=== PATIENT | female | born 1945 | race Caucasian/White ===

== ENCOUNTER 2018-04-04 13:40 | Emergency (ER) | payer MEDICARE, OTHER ==
[~2018-04-04] VITALS: Ht 160 cm; Wt 70.5 kg
[~2018-04-04 13:40] MED LIST: NORCO10T PO; OSC500T PO
[2018-04-04 13:56] VITALS: BP 187/91
[2018-04-04] MEDS ORDERED: ketorolac tromethamine 15mg/ml inj. IM ONE (14:00)
[2018-04-04] MEDS ORDERED: HYDROcodone/acetaminophen 10/325mg tab PO ONE (14:00)
[2018-04-04] MEDS ORDERED: TRAM50TA2 PO (15:43)
[2018-04-04] MEDS ORDERED: DICL100G15 TOP (15:43)
== END 2018-04-04 16:00 | disposition home or self-care (01) ==
LOC: ER 13:41
DX: M25.462 Effusion, left knee (principal); M71.22 Synovial cyst of popliteal space [Baker], left knee; I10 Essential (primary) hypertension; Z98.890 Other specified postprocedural states; Z79.899 Other long term (current) drug therapy
CPT/HCPCS: 73560; 93971; 96372; 99284; J1885

== ENCOUNTER 2018-07-17 08:39 | Outpatient (CLI) | payer MEDICARE, OTHER ==
[~2018-07-17 08:39] MED LIST changes: +DICL100G15 TOP
[2018-07-17 10:15] LABS: BASOPHILS # (AUTO) 0.1 X10'3 (0-0.2); BASOPHILS % (AUTO) 0.6 % (0-1); EOSINOPHILS # (AUTO) 0.2 X10'3 (0-0.9); EOSINOPHILS % (AUTO) 1.7 % (0-6); HEMATOCRIT 39.7 % (35.0-45.0); HEMOGLOBIN 13.6 g/dl (12.0-16.0); LYMPHOCYTES # (AUTO) 2.9 X10'3 (1.1-4.8); LYMPHOCYTES % (AUTO) 26.2 % (21-51); MEAN CORPUSCULAR HEMOGLOBIN 32.4 PG (27.0-31.0); MEAN CORPUSCULAR HGB CONC 34.3 % (33.0-36.5); MEAN CORPUSCULAR VOLUME 94.4 FL (78-98); MEAN PLATELET VOLUME 9.2 FL (7.4-10.4); MONOCYTES # (AUTO) 0.6 X10'3 (0-0.9); MONOCYTES % (AUTO) 5.5 % (2-12); NEUTROPHILS # (AUTO) 7.2 X10'3 (1.8-7.7); PLATELET COUNT 428 X10'3 (140-440); RED BLOOD COUNT 4.21 X10'6 (4.20-5.60); RED CELL DISTRIBUTION WIDTH 12.3 % (11.5-14.5)
[2018-07-17 10:15] LABS: CLARITY,URINE CLEAR (Clear); COLOR,URINE STRAW (Yellow); GLUCOSE, URINE NEGATIVE (Neg); KETONES,URINE NEGATIVE (Neg); LEUKOCYTE ESTERASE ,URINE NEGATIVE (Neg); NITRITES, URINE NEGATIVE (Neg); OCCULT BLOOD,URINE TRACE-INTACT (Neg); PROTEIN,URINE NEGATIVE (Neg); UROBILINOGEN,URINE 0.2 E.U/dL (0.2-1.0)
[2018-07-17 10:16] LABS: UA COLLECTION TYPE CLN CATCH MIDSTREAM
[2018-07-17 10:24] LABS: SQUAMOUS EPITHELIAL CELL,UR FEW /LPF (FEW)
[2018-07-17 10:25] LABS: WBC,URINE 0-4 /HPF (0-4)
[2018-07-17 10:26] LABS: BACTERIA,URINE NONE SEEN /HPF (Neg); RBC,URINE 0-2 /HPF (0-2)
[2018-07-17 10:35] LABS: ALANINE AMINOTRANSFERASE 72 U/L (12-78); ALBUMIN 3.6 G/DL (3.4-5.0); ALBUMIN/GLOBULIN RATIO 0.8 (1.1-1.5); ALKALINE PHOSPHATASE 154 IU/L (46-116); ANION GAP 10 (8-16); ASPARTATE AMINO TRANSFERASE 30 U/L (10-37); BILIRUBIN,TOTAL 0.4 MG/DL (0.1-1.0); BLOOD UREA NITROGEN 11 MG/DL (7-18); CALCIUM 8.6 MG/DL (8.5-10.1); CHLORIDE 103 MMOL/L (99-107); CREATININE 0.58 MG/DL (0.40-0.90); GLUCOSE 95 MG/DL (70-104); INR 0.9 INR; POTASSIUM 3.9 MMOL/L (3.5-5.1); PROTHROMBIN TIME 9.5 SECONDS (9.0-12.0); SODIUM 141 MMOL/L (135-145); TOTAL CARBON DIOXIDE 28.1 MMOL/L (24-32); eGFR > 90 ML/MIN
== END 2018-07-17 23:59 | disposition home or self-care (01) ==
LOC: LAB 08:39
PROVIDERS: ATTEND Specialist
DX: Z01.818 Encounter for other preprocedural examination (principal); Z51.81 Encounter for therapeutic drug level monitoring; N39.0 Urinary tract infection, site not specified; E03.9 Hypothyroidism, unspecified; Z87.891 Personal history of nicotine dependence
CPT/HCPCS: 36415; 80053; 81001; 84443; 85025; 85610; 87070

== ENCOUNTER 2018-07-30 12:29 | Inpatient (IN) | payer MEDICARE, OTHER ==
[2018-07-30] VITALS (16 sets, daily range): BP systolic 108–156; BP diastolic 59–99
[~2018-07-30] VITALS: Ht 161.3 cm; Wt 68.6 kg
[~2018-07-30 12:29] MED LIST changes: -DICL100G15 TOP; +LEVO75TA PO; +LOSA25TA96 PO; -NORCO10T PO; +cefazolin/dext.iso 2gm/100 ML IV ONE; +celeCOXIB 100mg capsule PO ONE; +famotidine 20mg tablet PO ONE; +gabapentin 300mg capsule PO ONE; +oxyCODONE SR 10mg (sust. release) tab PO ONE; +ringers solution, lacted 1,000 ML IV SCH; +tranexamic acid inj. 1,500 MG in normal saline 100ml IV soln 100 ML IV ONE
[2018-07-30] MEDS ORDERED: ROPIVAcaine 0.5% (5mg/ml) 30ml vial ONE ×2 (12:33→13:03)
[2018-07-30] MEDS ORDERED: hydrALAZINE 20mg/ml inj. IV PRN (12:40)
[2018-07-30] MEDS: acetaminophen 325mg tablet PO ONE ×2 (12:40→13:15)
[2018-07-30] MEDS ORDERED: ringers solution, lacted 1,000 ML IV SCH (12:40)
[2018-07-30] MEDS ORDERED: fentaNYL/PF 50MCG/1 ML 2ML syringe IV PRN ×2 (12:40)
[2018-07-30] MEDS ORDERED: labetalol 20mg/4ml (5mg/ml) syringe IV PRN (12:40)
[2018-07-30] MEDS ORDERED: ondansetron/PF 4mg/2ml inj IV PRN ×2 (12:40→14:20)
[2018-07-30] MEDS ORDERED: morphine 4 MG/ML inj SYRINge IV PRN ×2 (12:40)
[2018-07-30] MEDS ORDERED: bacitracin inj 150,000 UNIT in sodium chloride irrig. sol 3,000 ML IR ONE (13:00)
[2018-07-30] MEDS ORDERED: tetracaine 1% (10mg/ml) pres. free inj. ONE (13:03)
[2018-07-30] MEDS ORDERED: BUPIVAcaine/dex-water/PF 7.5 mg/ml 2ml ampul ONE (13:04)
[2018-07-30] MEDS ORDERED: MIDAZolam 1mg/ml 10ml vial ONE (13:07)
[2018-07-30] MEDS ORDERED: fentaNYL/PF 50MCG/1 ML 2ML syringe ONE (13:07)
[2018-07-30] MEDS ORDERED: LIDOcaine 2% (20mg/ml) 5ml vial ONE (13:12)
[2018-07-30] MEDS ORDERED: dexamethasone sod phosphate 10mg/ml inj ONE (13:12)
[2018-07-30] MEDS ORDERED: propofol 10mg/ml 20ml vial IV ONE (13:12)
[2018-07-30] MEDS ORDERED: ondansetron/PF 4mg/2ml inj ONE (13:47)
[2018-07-30] MEDS ORDERED: diphenhydrAMINE 50 mg/ml inj IV PRN (14:20)
[2018-07-30] MEDS ORDERED: ceFAZolin 1000mg inj ONE (14:45)
[2018-07-30] MEDS ORDERED: oxyCODONE/APAP 10/325mg tablet PO PRN (15:20)
[2018-07-30] MEDS ORDERED: magnesium hydroxide 30ml (MOM) UD suspension PO PRN (15:20)
[2018-07-30] MEDS ORDERED: diphenhydrAMINE 25mg capsule PO PRN ×2 (15:20)
[2018-07-30] MEDS ORDERED: HYDROmorphone 1 mg/ml syringe IV PRN (15:20)
[2018-07-30] MEDS: potassium cl 20mEq in 1/2 NS 1,000 ML IV SCH ×2 (15:20→23:30)
[2018-07-30] MEDS ORDERED: bisacodyl 10mg suppository rectal RC PRN (15:20)
[2018-07-30] MEDS ORDERED: acetaminophen 325mg tablet PO PRN (15:20)
[2018-07-30] MEDS: ceFAZolin 1GM/D5W- ADD-VANTAGE 50 ML IV SCH ×2 (16:00→23:30)
[2018-07-30] MEDS: ondansetron/PF 4mg/2ml inj IV PRN ×2 (18:02→23:45)
[2018-07-30] MEDS: oxyCODONE/APAP 10/325mg tablet PO PRN ×2 (18:48→23:38)
[2018-07-30] MEDS: losartan 50mg tablet PO SCH (20:29)
[2018-07-30] MEDS: gabapentin 300mg capsule PO SCH (20:29)
[2018-07-30] MEDS: ascorbic acid 500mg tablet PO SCH (20:29)
[2018-07-30] MEDS: sennosides 8.6mg tablet PO SCH (20:29)
[2018-07-31 02:00] VITALS: BP 124/56
[2018-07-31] MEDS: levoTHYROXINE 88mcg tablet PO SCH (04:11)
[2018-07-31] MEDS: oxyCODONE/APAP 10/325mg tablet PO PRN ×2 (05:24→18:41)
[2018-07-31 05:55] LABS: BASOPHILS % (AUTO) 0.2 % (0-1); EOSINOPHILS # (AUTO) 0.1 X10'3 (0-0.9); EOSINOPHILS % (AUTO) 1.1 % (0-6); HEMATOCRIT 33.2 % (35.0-45.0); HEMOGLOBIN 11.3 g/dl (12.0-16.0); LYMPHOCYTES # (AUTO) 2.4 X10'3 (1.1-4.8); LYMPHOCYTES % (AUTO) 18.4 % (21-51); MEAN CORPUSCULAR HGB CONC 33.9 % (33.0-36.5); MEAN CORPUSCULAR VOLUME 94.3 FL (78-98); MEAN PLATELET VOLUME 8.5 FL (7.4-10.4); MONOCYTES # (AUTO) 0.9 X10'3 (0-0.9); MONOCYTES % (AUTO) 6.7 % (2-12); NEUTROPHILS # (AUTO) 9.5 X10'3 (1.8-7.7); NEUTROPHILS % (AUTO) 73.6 % (42-75); PLATELET COUNT 379 X10'3 (140-440); RED BLOOD COUNT 3.52 X10'6 (4.20-5.60); RED CELL DISTRIBUTION WIDTH 12.6 % (11.5-14.5)
[2018-07-31 06:00] VITALS: BP 125/50
[2018-07-31 06:08] LABS: ANION GAP 8 (8-16); CHLORIDE 101 MMOL/L (99-107); POTASSIUM 4.3 MMOL/L (3.5-5.1); SODIUM 137 MMOL/L (135-145); TOTAL CARBON DIOXIDE 27.9 MMOL/L (24-32)
[2018-07-31 06:09] LABS: PARTIAL THROMBOPLASTIN TIME 30 SECONDS (22-32)
[2018-07-31 06:45] LABS: INR 1.4 INR
[2018-07-31] MEDS: multivitamins, therapeutics tablet PO SCH (08:33)
[2018-07-31] MEDS: ascorbic acid 500mg tablet PO SCH ×2 (08:34→20:53)
[2018-07-31] MEDS: gabapentin 300mg capsule PO SCH ×3 (08:35→20:54)
[2018-07-31 10:00] VITALS: BP_SYST 101; BP_SYST 131; BP_SYST 142; BP_DIAS 43; BP_DIAS 49; BP_DIAS 58; BP_DIAS 61
[2018-07-31] MEDS ORDERED: warfarin 5mg tablet PO ONE (10:00)
[2018-07-31] MEDS: potassium cl 20mEq in 1/2 NS 1,000 ML IV SCH ×2 (11:27→15:20)
[2018-07-31 18:00] VITALS: BP 116/57
[2018-07-31] MEDS: lactose-reduced food (Ensure High Protein) 237ml bottle PO SCH (18:00)
[2018-07-31] MEDS: losartan 50mg tablet PO SCH (20:52)
[2018-07-31] MEDS: sennosides 8.6mg tablet PO SCH (20:53)
[2018-07-31] MEDS: celeCOXIB 100mg capsule PO SCH (20:53)
[2018-08-01] MEDS: levoTHYROXINE 88mcg tablet PO SCH (03:13)
[2018-08-01] MEDS: oxyCODONE/APAP 10/325mg tablet PO PRN ×3 (03:14→18:56)
[2018-08-01 06:00] VITALS: BP 102/46
[2018-08-01 06:19] LABS: BASOPHILS % (AUTO) 0.5 % (0-1); EOSINOPHILS # (AUTO) 0.2 X10'3 (0-0.9); HEMATOCRIT 28.6 % (35.0-45.0); HEMOGLOBIN 9.8 g/dl (12.0-16.0); LYMPHOCYTES # (AUTO) 2.6 X10'3 (1.1-4.8); LYMPHOCYTES % (AUTO) 26.5 % (21-51); MEAN CORPUSCULAR HEMOGLOBIN 32.2 PG (27.0-31.0); MEAN CORPUSCULAR HGB CONC 34.2 % (33.0-36.5); MEAN CORPUSCULAR VOLUME 94.4 FL (78-98); MEAN PLATELET VOLUME 9.1 FL (7.4-10.4); MONOCYTES # (AUTO) 0.7 X10'3 (0-0.9); MONOCYTES % (AUTO) 7.6 % (2-12); NEUTROPHILS # (AUTO) 6.1 X10'3 (1.8-7.7); NEUTROPHILS % (AUTO) 63.4 % (42-75); PLATELET COUNT 316 X10'3 (140-440); RED BLOOD COUNT 3.03 X10'6 (4.20-5.60); RED CELL DISTRIBUTION WIDTH 13.2 % (11.5-14.5); WHITE BLOOD COUNT 9.7 X10'3 (4.5-11.0)
[2018-08-01 06:38] LABS: PROTHROMBIN TIME 23.9 SECONDS (9.0-12.0)
[2018-08-01 06:39] LABS: INR 2.5 INR; PARTIAL THROMBOPLASTIN TIME 35 SECONDS (22-32)
[2018-08-01] MEDS: potassium cl 20mEq in 1/2 NS 1,000 ML IV SCH ×2 (07:20→08:31)
[2018-08-01] MEDS: gabapentin 300mg capsule PO SCH ×3 (08:41→21:02)
[2018-08-01] MEDS: celeCOXIB 100mg capsule PO SCH ×2 (08:41→21:02)
[2018-08-01] MEDS: ascorbic acid 500mg tablet PO SCH ×2 (08:41→21:02)
[2018-08-01] MEDS: multivitamins, therapeutics tablet PO SCH (08:41)
[2018-08-01] MEDS: lactose-reduced food (Ensure High Protein) 237ml bottle PO SCH ×3 (08:41→18:00)
[2018-08-01 10:00] VITALS: BP 139/72
[2018-08-01] MEDS: ondansetron/PF 4mg/2ml inj IV PRN (13:18)
[2018-08-01 14:30] VITALS: BP 139/74
[2018-08-01] MEDS ORDERED: acetaminophen 325mg tablet PO PRN (15:20)
[2018-08-01 18:00] VITALS: BP 134/76
[2018-08-01] MEDS: losartan 50mg tablet PO SCH (21:02)
[2018-08-01] MEDS: sennosides 8.6mg tablet PO SCH (21:02)
[2018-08-01 22:00] VITALS: BP 139/56
[2018-08-02] MEDS: levoTHYROXINE 88mcg tablet PO SCH (03:49)
[2018-08-02 06:57] LABS: BASOPHILS # (AUTO) 0.1 X10'3 (0-0.2); BASOPHILS % (AUTO) 0.5 % (0-1); EOSINOPHILS # (AUTO) 0.3 X10'3 (0-0.9); EOSINOPHILS % (AUTO) 3.1 % (0-6); HEMATOCRIT 31.2 % (35.0-45.0); HEMOGLOBIN 10.5 g/dl (12.0-16.0); LYMPHOCYTES # (AUTO) 3.5 X10'3 (1.1-4.8); LYMPHOCYTES % (AUTO) 36.1 % (21-51); MEAN CORPUSCULAR HEMOGLOBIN 31.6 PG (27.0-31.0); MEAN CORPUSCULAR HGB CONC 33.6 % (33.0-36.5); MEAN CORPUSCULAR VOLUME 94.1 FL (78-98); MEAN PLATELET VOLUME 8.5 FL (7.4-10.4); MONOCYTES # (AUTO) 0.7 X10'3 (0-0.9); MONOCYTES % (AUTO) 7.7 % (2-12); NEUTROPHILS % (AUTO) 52.6 % (42-75); PLATELET COUNT 340 X10'3 (140-440); RED BLOOD COUNT 3.32 X10'6 (4.20-5.60); RED CELL DISTRIBUTION WIDTH 13.1 % (11.5-14.5); WHITE BLOOD COUNT 9.6 X10'3 (4.5-11.0)
[2018-08-02 07:11] LABS: INR 1.7 INR; PARTIAL THROMBOPLASTIN TIME 40 SECONDS (22-32); PROTHROMBIN TIME 17.2 SECONDS (9.0-12.0)
[2018-08-02] MEDS ORDERED: ASPI-1264 PO (08:01)
[2018-08-02] MEDS: gabapentin 300mg capsule PO SCH (08:53)
[2018-08-02] MEDS: multivitamins, therapeutics tablet PO SCH (08:53)
[2018-08-02] MEDS: ascorbic acid 500mg tablet PO SCH (08:53)
[2018-08-02] MEDS: celeCOXIB 100mg capsule PO SCH (08:53)
[2018-08-02] MEDS: lactose-reduced food (Ensure High Protein) 237ml bottle PO SCH (08:57)
[2018-08-02] MEDS ORDERED: warfarin 1mg tablet PO ONE (10:00)
== END 2018-08-02 10:15 | disposition home health service (06) | DRG 470 ==
LOC: PAS IN 12:29 → EDSTATUS 14:30 → ORTHO 4S 17:00
PROVIDERS: ADMIT Specialist; ATTEND Specialist
PROC: 3E0T3BZ Introduction of Anesthetic Agent into Peripheral Nerves and Plexi, Percutaneous Approach (ICD-10-PCS; 2018-07-30)
PROC: 0SRD0J9 Replacement of Left Knee Joint with Synthetic Substitute, Cemented, Open Approach (ICD-10-PCS; principal; 2018-07-30 13:17)
DX: M17.12 Unilateral primary osteoarthritis, left knee (principal); D62 Acute posthemorrhagic anemia; E03.9 Hypothyroidism, unspecified; I10 Essential (primary) hypertension; M21.062 Valgus deformity, not elsewhere classified, left knee; Z90.81 Acquired absence of spleen; Z98.49 Cataract extraction status, unspecified eye; Z79.899 Other long term (current) drug therapy; Z88.5 Allergy status to narcotic agent; Z87.891 Personal history of nicotine dependence
CPT/HCPCS: 36415; 73560; 80051; 85025; 85610; 85730; 97110; 97116; 97162; 97530; A6449; A6455; A7000; C1713; C1758; C1776; J0690; J1100; J2001; J2250; J2405; J2704; J2795; J3010; J3490; J7030; J7120

== ENCOUNTER 2024-06-22 13:14 | Emergency (ER) | payer MEDICARE ==
[~2024-06-22] VITALS: Ht 161.3 cm; Wt 59.0 kg
[~2024-06-22 13:14] MED LIST changes: +LOSA-415 PO; -LOSA25TA96 PO; -cefazolin/dext.iso 2gm/100 ML IV ONE; -celeCOXIB 100mg capsule PO ONE; -famotidine 20mg tablet PO ONE; -gabapentin 300mg capsule PO ONE; -oxyCODONE SR 10mg (sust. release) tab PO ONE; -ringers solution, lacted 1,000 ML IV SCH; -tranexamic acid inj. 1,500 MG in normal saline 100ml IV soln 100 ML IV ONE
[2024-06-22] MEDS ORDERED: ondansetron/PF 4mg/2ml inj IV ONE (17:05)
[2024-06-22] MEDS ORDERED: HYDROmorphone 1 mg/ml syringe IV ONE (17:05)
[2024-06-22 17:47] VITALS: BP 146/95; PULSE 71; RESP 14; TEMP 98.5; O2SAT 99
== END 2024-06-22 17:25 | disposition home or self-care (01) ==
LOC: ER 13:15
DX: S62.615A Displaced fracture of proximal phalanx of left ring finger, initial encounter for closed fracture (principal); S62.617A Displaced fracture of proximal phalanx of left little finger, initial encounter for closed fracture; S09.90XA Unspecified injury of head, initial encounter; I10 Essential (primary) hypertension; E07.9 Disorder of thyroid, unspecified; Z79.899 Other long term (current) drug therapy; Z98.890 Other specified postprocedural states; W01.0XXA Fall on same level from slipping, tripping and stumbling without subsequent striking against object, initial encounter; Y93.89 Activity, other specified; Y92.89 Other specified places as the place of occurrence of the external cause; Y99.8 Other external cause status
CPT/HCPCS: 29125; 70450; 73130; 99284; A6402; A6446; A6449

== ENCOUNTER 2024-11-12 15:09 | Inpatient (IN) | payer MEDICARE ==
[~2024-11-12] VITALS: Ht 160 cm; Wt 53.6 kg
[2024-11-12] MEDS: normal saline 1000ml 1,000 ML IV SCH (01:00)
[2024-11-12 19:30] LABS: BASOPHILS % (AUTO) 0.4 % (0-1); EOSINOPHILS % (AUTO) 0.4 % (0-6); HEMATOCRIT 43.9 % (35.0-45.0); HEMOGLOBIN 15.1 g/dl (12.0-16.0); LYMPHOCYTES # (AUTO) 2.2 X10'3 (1.1-4.8); LYMPHOCYTES % (AUTO) 18.2 % (21-51); MEAN CORPUSCULAR HEMOGLOBIN 31.8 PG (27.0-31.0); MEAN CORPUSCULAR HGB CONC 34.4 g/dL (33.0-36.5); MEAN CORPUSCULAR VOLUME 92.5 FL (78-98); MEAN PLATELET VOLUME 8.2 FL (7.4-10.4); MONOCYTES # (AUTO) 0.8 X10'3 (0-0.9); MONOCYTES % (AUTO) 6.8 % (2-12); NEUTROPHILS # (AUTO) 8.8 X10'3 (1.8-7.7); NEUTROPHILS % (AUTO) 74.2 % (42-75); PLATELET COUNT 566 X10'3 (140-440); RED BLOOD COUNT 4.74 X10'6 (4.20-5.60); RED CELL DISTRIBUTION WIDTH 13.5 % (11.5-14.5); WHITE BLOOD COUNT 11.9 X10'3 (4.5-11.0)
[2024-11-12 19:48] LABS: ALANINE AMINOTRANSFERASE 30 U/L (12-78); ALBUMIN 3.5 G/DL (3.4-5.0); ALBUMIN/GLOBULIN RATIO 0.7 (1.1-1.5); ALKALINE PHOSPHATASE 100 IU/L (46-116); ANION GAP 7 (8-16); ASPARTATE AMINO TRANSFERASE 18 U/L (10-37); BILIRUBIN,TOTAL 0.6 MG/DL (0.1-1.0); BLOOD UREA NITROGEN 21 MG/DL (7-18); BUN/CREATININE RATIO 47.7 (10.0-20.0); CALCIUM 9.4 MG/DL (8.5-10.1); CHLORIDE 98 MMOL/L (99-107); CREATININE 0.44 MG/DL (0.40-0.90); GLUCOSE 107 MG/DL (70-104); POTASSIUM 3.7 MMOL/L (3.5-5.1); SODIUM 135 MMOL/L (135-145); TOTAL CARBON DIOXIDE 29.7 MMOL/L (24-32); TOTAL PROTEIN 8.5 G/DL (6.4-8.2); eCRCL 86 ML/MIN; eGFR > 90 ML/MIN
[2024-11-12] MEDS ORDERED: mag hydrox/Alum hydrox/simeth 30ml oral suspension PO PRN (23:20)
[2024-11-12] MEDS ORDERED: magnesium sulf-water 2g/50mL 50 ML IV PRN (23:20)
[2024-11-12] MEDS ORDERED: potassium Cl 20 mEq SR tablet PO PRN ×2 (23:20)
[2024-11-12] MEDS ORDERED: magnesium hydroxide 30ml (MOM) UD suspension PO PRN (23:20)
[2024-11-12] MEDS ORDERED: potassium Cl 40MEQ/1/2NS 520ml 520 ML IV PRN (23:20)
[2024-11-12] MEDS ORDERED: magnesium sulf-water 4G/100mL 100 ML IV PRN (23:20)
[2024-11-12] MEDS ORDERED: ondansetron/PF 4mg/2ml inj IV PRN (23:20)
[2024-11-12] MEDS ORDERED: morphine 2 MG/ML inj. syringe IV PRN ×2 (23:20)
[2024-11-12] MEDS ORDERED: acetaminophen 325mg tablet PO PRN ×2 (23:20)
[2024-11-12] MEDS ORDERED: magnesium Cl slow-release 64mg tablet PO PRN (23:20)
[2024-11-13] VITALS (10 sets, daily range): BP systolic 124–171; BP diastolic 69–100; PULSE 93–108; RESP 13–18; TEMP 97.6; O2SAT 93–99
[2024-11-13] MEDS: levoTHYROXINE 88mcg tablet PO SCH (07:01)
[2024-11-13] MEDS: docusate sod 100mg capsule PO SCH (07:57)
[2024-11-13] MEDS: heparin, porcine 5000 units/ml vial SQ SCH (07:57)
[2024-11-13] MEDS: K and/or MAG REPLACEMENT MC SCH (07:57)
[2024-11-13 08:32] LABS: BASOPHILS % (AUTO) 0.4 % (0-1); EOSINOPHILS # (AUTO) 0.1 X10'3 (0-0.9); EOSINOPHILS % (AUTO) 0.8 % (0-6); HEMATOCRIT 43.6 % (35.0-45.0); HEMOGLOBIN 14.7 g/dl (12.0-16.0); LYMPHOCYTES # (AUTO) 2.6 X10'3 (1.1-4.8); LYMPHOCYTES % (AUTO) 23.5 % (21-51); MEAN CORPUSCULAR HEMOGLOBIN 31.3 PG (27.0-31.0); MEAN CORPUSCULAR HGB CONC 33.7 g/dL (33.0-36.5); MEAN CORPUSCULAR VOLUME 92.9 FL (78-98); MEAN PLATELET VOLUME 8.5 FL (7.4-10.4); MONOCYTES # (AUTO) 0.8 X10'3 (0-0.9); MONOCYTES % (AUTO) 7.6 % (2-12); NEUTROPHILS # (AUTO) 7.4 X10'3 (1.8-7.7); NEUTROPHILS % (AUTO) 67.7 % (42-75); PLATELET COUNT 576 X10'3 (140-440); RED BLOOD COUNT 4.69 X10'6 (4.20-5.60); RED CELL DISTRIBUTION WIDTH 13.6 % (11.5-14.5)
[2024-11-13 09:22] LABS: ALANINE AMINOTRANSFERASE 27 U/L (12-78); ALBUMIN 3.2 G/DL (3.4-5.0); ALBUMIN/GLOBULIN RATIO 0.6 (1.1-1.5); ALKALINE PHOSPHATASE 96 IU/L (46-116); ANION GAP 12 (8-16); ASPARTATE AMINO TRANSFERASE 22 U/L (10-37); BILIRUBIN,TOTAL 1.4 MG/DL (0.1-1.0); BLOOD UREA NITROGEN 19 MG/DL (7-18); BUN/CREATININE RATIO 29.7 (10.0-20.0); CALCIUM 9.2 MG/DL (8.5-10.1); CHLORIDE 96 MMOL/L (99-107); CREATININE 0.64 MG/DL (0.40-0.90); GLUCOSE 111 MG/DL (70-104); MAGNESIUM 2.6 MG/DL (1.5-2.4); POTASSIUM 3.7 MMOL/L (3.5-5.1); SODIUM 134 MMOL/L (135-145); THYROID STIMULATING HORMONE 0.59 ulU/ml (0.34-4.50); TOTAL CARBON DIOXIDE 25.6 MMOL/L (24-32); TOTAL PROTEIN 8.2 G/DL (6.4-8.2); eCRCL 59 ML/MIN; eGFR 90 ML/MIN
[2024-11-13] MEDS: vitamin B comp w/Vit. C tab 1 TAB TABLET PO SCH (10:01)
[2024-11-13] MEDS ORDERED: GADOTERATE MEGLUMINE 7.5 MMOL/15 ML VIAL IV ONE (13:25)
[2024-11-13] MEDS: losartan 50mg tablet PO ONE (13:51)
[2024-11-13] MEDS ORDERED: iohexol 300mg/ml 100ml inj. ONE (15:52)
[2024-11-13] MEDS: atorvastatin 20mg tablet PO ONE (18:14)
[2024-11-13] MEDS: aspirin 81mg, enteric-coated 1 TAB TABLET.DR PO ONE (19:36)
[2024-11-13] MEDS: sennosides/docusate sodium tablet PO SCH (19:36)
[2024-11-14] VITALS (9 sets, daily range): BP systolic 146–172; BP diastolic 70–92; PULSE 88–109; RESP 12–18; TEMP 98–98.8; O2SAT 95–99
[2024-11-14 06:56] LABS: BASOPHILS % (AUTO) 0.5 % (0-1); EOSINOPHILS # (AUTO) 0.1 X10'3 (0-0.9); EOSINOPHILS % (AUTO) 1.3 % (0-6); LYMPHOCYTES % (AUTO) 21.1 % (21-51); MEAN CORPUSCULAR HEMOGLOBIN 31.5 PG (27.0-31.0); MEAN CORPUSCULAR HGB CONC 34.2 g/dL (33.0-36.5); MEAN CORPUSCULAR VOLUME 92.2 FL (78-98); MEAN PLATELET VOLUME 8.9 FL (7.4-10.4); MONOCYTES # (AUTO) 0.8 X10'3 (0-0.9); MONOCYTES % (AUTO) 8.6 % (2-12); NEUTROPHILS # (AUTO) 6.4 X10'3 (1.8-7.7); NEUTROPHILS % (AUTO) 68.5 % (42-75); PLATELET COUNT 454 X10'3 (140-440); RED BLOOD COUNT 4.12 X10'6 (4.20-5.60); RED CELL DISTRIBUTION WIDTH 13.3 % (11.5-14.5); WHITE BLOOD COUNT 9.3 X10'3 (4.5-11.0)
[2024-11-14 07:08] LABS: ALANINE AMINOTRANSFERASE 35 U/L (12-78); ALBUMIN 2.9 G/DL (3.4-5.0); ALBUMIN/GLOBULIN RATIO 0.7 (1.1-1.5); ALKALINE PHOSPHATASE 87 IU/L (46-116); ANION GAP 9 (8-16); ASPARTATE AMINO TRANSFERASE 22 U/L (10-37); BILIRUBIN,TOTAL 0.7 MG/DL (0.1-1.0); BLOOD UREA NITROGEN 9 MG/DL (7-18); BUN/CREATININE RATIO 21.4 (10.0-20.0); CALCIUM 8.4 MG/DL (8.5-10.1); CHLORIDE 103 MMOL/L (99-107); CREATININE 0.42 MG/DL (0.40-0.90); GLUCOSE 98 MG/DL (70-104); POTASSIUM 3.1 MMOL/L (3.5-5.1); SODIUM 139 MMOL/L (135-145); TOTAL CARBON DIOXIDE 27.1 MMOL/L (24-32); eCRCL 90 ML/MIN; eGFR > 90 ML/MIN
[2024-11-14] MEDS: atorvastatin 20mg tablet PO SCH (08:00)
[2024-11-14] MEDS ORDERED: hydrALAZINE 20mg/ml inj. IV PRN (08:05)
[2024-11-14] MEDS: losartan 50mg tablet PO SCH (09:29)
[2024-11-14] MEDS: aspirin 81mg, enteric-coated 1 TAB TABLET.DR PO SCH (09:30)
[2024-11-14] MEDS: amLODIPine 5mg tablet PO ONE (09:31)
[2024-11-14] MEDS: metoprolol tartrate 25mg tablet PO ONE (09:31)
[2024-11-14] MEDS ORDERED: POTASSIUM CHLORIDE 20 MEQ/15 ML oral solution PO PRN (10:46)
[2024-11-14] MEDS: POTASSIUM CHLORIDE 20 MEQ/15 ML oral solution PO PRN (12:33)
[2024-11-14] MEDS: hydrALAZINE 20mg/ml inj. IV PRN (14:16)
[2024-11-14] MEDS: normal saline 1000ml 1,000 ML IV ONE (15:05)
[2024-11-14] MEDS ORDERED: morphine 2 MG/ML inj. syringe IV PRN ×2 (16:30)
[2024-11-14] MEDS ORDERED: metoprolol tartrate 25mg tablet PO SCH (20:00)
[2024-11-15] MEDS ORDERED: HYDROcodone/acetaminophen 10/325mg tab PO PRN (07:30)
[2024-11-15] MEDS ORDERED: HYDROcodone/acetaminophen 5mg/325mg tablet PO PRN (07:30)
[2024-11-15] MEDS ORDERED: morphine 10mg/0.5ml (conc. morphine) oral syringe PO PRN (07:30)
[2024-11-15] MEDS ORDERED: amLODIPine 5mg tablet PO SCH (08:00)
[2024-11-15] MEDS: mineral oil 133ml enema RC PRN (11:01)
[2024-11-15] MEDS ORDERED: guaiFENesin/DM 10ml UD oral syrup PO PRN (13:30)
== END 2024-11-15 15:45 | disposition hospice, home (50) | DRG 65 ==
LOC: ER 15:10 → ED HOLD 21:56 → ORTHO 4S 11-13 17:43
PROVIDERS: ADMIT Internal Medicine Pulmonary Disease; ATTEND Nurse Practitioner Family
PROC: BW251ZZ Computerized Tomography (CT Scan) of Chest, Abdomen and Pelvis using Low Osmolar Contrast (ICD-10-PCS; principal; 2024-11-13)
DX: I63.9 Cerebral infarction, unspecified (principal); C71.9 Malignant neoplasm of brain, unspecified; I31.39 Other pericardial effusion (noninflammatory); M47.816 Spondylosis without myelopathy or radiculopathy, lumbar region; M48.07 Spinal stenosis, lumbosacral region; R91.8 Other nonspecific abnormal finding of lung field; G62.9 Polyneuropathy, unspecified; Z66 Do not resuscitate; I10 Essential (primary) hypertension; G93.9 Disorder of brain, unspecified; R29.702 NIHSS score 2; Z51.5 Encounter for palliative care
CPT/HCPCS: 36415; 70450; 70553; 71270; 72131; 74178; 80053; 83735; 84443; 85025; 92508; 92616; 93306; 99285; C1758; G0378; J0360; J1644; J7030; Q9967